=== PATIENT | male | born 1985 | race Caucasian/White ===

== ENCOUNTER 2025-03-20 12:39 | Emergency (ER) | payer MEDICAID, SELFPAY ==
[2025-03-20 12:47] VITALS: BP 152/113; PULSE 71; RESP 18; TEMP 36.6; O2SAT 99
--- NOTE | 2025-03-20 12:52 | ED_ITS ---
HPI - Nausea/Vomiting/Diarrhea General Chief complaint: Nausea/Vomiting/Diarrhea Stated complaint: wants to detox Time Seen by Provider: 03/20/25 12:45 Source: patient and family Mode of arrival: ambulatory Limitations: no limitations History of Present Illness HPI Narrative: Patient is a 40-year-old male who came to the ER for discussion of alcohol detoxification. He has not had an alcoholic beverage in about 18 hours. He is not having current withdrawal symptoms. He is having some nausea. MD elicited complaint: nausea Pertinent past history: alcohol abuse ( more than 15 years and no trial of detox except 15 years ago) Onset (ago): day(s) ( 1) Description of vomiting: none Description of diarrhea: other ( none) Associated nausea: Yes Associated abdominal pain: No Location of pain: none Radiation: does not radiate Pain consistency: other ( none) Severity: mild Pain scale (0-10): 1 Quality: other ( none) Exacerbating factors: other ( patient stopped alcohol yesterday) Relieving factors: none Context: alcohol abuse Associated symptoms: denies other symptoms Treatment prior to arrival: none Related Data Home Medications ?Medication ?Instructions ?Recorded ?Confirmed ?Last Taken ?Type No Home Medications 03/20/25 03/20/25 Unknown History Allergies Allergy/AdvReac Type Severity Reaction Status Date / Time red (food color) Allergy Hives Verified 03/20/25 12:51 Review of Systems Review of Systems: All systems reviewed & are unremarkable except as noted in HPI and below Constitutional: Constitutional: Reports no additional constitutional complaints Eyes: Eyes: Reports no additional eye complaints ENT: Reports system reviewed and no additional complaints, except as documented Cardiovascular: Cardiovascular: Reports no additional cardiovascular complaints Respiratory: Respiratory: Reports no additional respiratory complaints Gastrointestinal: Gastrointestinal: Reports no additional gastrointestinal complaints Genitourinary: Genitourinary: Reports no additional male genitourinary complaints Musculoskeletal: Musculoskeletal: Reports no additional musculoskeletal complaints Integumentary/Breasts: Skin/Breast: Reports system reviewed and no additional complaints, except as docu Neurologic: Reports system reviewed and no additional complaints, except as documented Psychiatric: Psychiatric: Reports no additional psychiatric complaints Endocrine: Endocrine: Reports no additional endocrine complaints Hematologic/Lymphatic: Hematologic/Lymphatic: Reports no additional hematologic/lymphatic complaints Allergic/Immunologic: Allergic/Immunologic: Reports no additional allergic/immunologic complaints Exam Const: General: healthy appearing Nutritional Appearance: well nourished Orientation/consciousness: patient oriented x3 HENMT: Head: normal to inspection Ears: external ears normal Face/Nose/Sinus: Normal external nose present Eyes: Conjunctivae: conjunctivae normal Cornea: corneas normal Pupils: Equal, round and reactive pupils present Neck: Neck: normal visual inspection Chest: Chest palpation & inspection: normal inspection of the chest Resp: Effort & Inspection: normal respiratory effort and not labored Auscultation: clear to auscultation bilaterally and no crackles Cardio: Rate: regular rate Rhythm: regular rhythm Heart sounds: no murmurs GI: Inspection: non-distended GI Palp: Yes Soft to palpation and No Ten derness to palpation present (GI) Auscultation: normal bowel sounds : General: Yes bladder normal to palpation Back/Spine/Pelvis: Back: no CVA tenderness Skin: General skin exam: normal color Rashes: no rashes Wounds: no wounds Neuro: General: patient oriented x3, moves all extremities and no meningeal signs Cranial nerves: Yes Nystagmus not present Speech: normal speech Gait exam (Neuro): Normal gait present Other: GCS is 15 Extrem: General: normal to inspection Psych: Mental Status: mental status grossly normal Affect: normal affect Attitude: cooperative Course Vital Signs Vital signs: Vital Signs Temperature 36.6 C 03/20/25 12:47 Pulse Rate 71 03/20/25 12:47 Respiratory Rate 18 03/20/25 12:47 Blood Pressure 152/113 H 03/20/25 12:47 Pulse Oximetry 99 03/20/25 12:47 Oxygen Delivery Room Air 03/20/25 12:47 Temperature 36.6 C 03/20/25 12:47 Pulse Rate 71 03/20/25 12:47 Respiratory Rate 18 03/20/25 12:47 Blood Pressure 152/113 H 03/20/25 12:47 Pulse Oximetry 99 03/20/25 12:47 Oxygen Delivery Room Air 03/20/25 12:47 MDM - Nausea/Vomiting/Diarrhea MDM Narrative Medical decision making narrative: patient is a 40-year-old male with desire for alcohol detoxification and some nausea. We discussed options of doing IV fluids and nausea medicine and see how he does but he is not in withdrawal at this time and does not meet criteria exactly for admission at this time. Further, he may go to the detox inpatient at [facility] but he would have to go on his own to the front door and jitendra ck in to the hospital. Patient chose to go to the hospital for detox on his own. Discharge Plan Discharge Clinical Impression: Alcoholism Patient Disposition: Home Condition: Stable Instructions: Abuse of Alcohol (ED) Additional Instructions: please proceed to the detox program at the given [facility] at this time. Patient Language: Frisian Prescriptions: No Action No Home Medications Follow-up/Referrals: UNKNOWN,DOCTOR [Non-Staff] - Time of Disposition: 13:21
--- OUTSIDE RECORDS SUMMARY | 2025-03-20 14:34 | XMS_ITS | Continuity of Care Document ---
Author Organization [facility] Address [address] [place] [address] [place] [address] Phone Care Team Providers Care Commissioned Sales Associate Name Role Phone Reynold Oneil MD Unavailable Unavailable Allergies, Adverse Reactions, Alerts Substance Reaction Status Criticality red dye Active No Information Medications Medication Instructions Dosage Effective Dates (start - stop) Status Comments Ultram 50 mg tablet take 1 tablet (50MG) by oral route every 6 hours as needed - Active PRN for pain, avoid driving or operate machines Paxil 20 mg tablet take 1 tablet (20MG) by oral route every day 20 MG - Active buspirone 7.5 mg tablet take 1 tablet (7.5MG) by oral route 2 times every day 7.5 MG - Active avoid driving or operate machines Procedures Procedure Date PREV VISIT, NEW, AGE 18-39 Advance Directives Directive Yes / No Effective Date File Name No Information Encounters Encounter Description Practice Location Reason(s) For Visit Diagnoses Date Provider Providers Copied on Encounter [facility], [address] [place], [place], [id number], tel:[phone] [facility] No Information Thad Flaherty. [address] [facility] [place], [id number], [place]. tel:[phone] PREV VISIT, NEW, AGE 18-39 [facility], [address] [place] [place], [place], [id number], [place] tel:[phone] [facility] Medicine Physical (chief complaint) Routine Medical ExamRoutine Medical Exam Thad Flaherty. [address], [place], [place], [id number], [place]. tel:[phone] Family History Family Member Type Diagnosis Age At Onset Mother Problem (finding) Anxiety Father Problem (finding) Alive and well Mother Problem (finding) MS Brother Problem (finding) Anxiety Father Problem (finding) No Family hist ory of No history of Coronary artery disease Payers Payer name Insurance type Covered republican ID Authoriza tion(s) No Information Social History Type Description Quantity Date Captured Comments Sex Male Smoking Status No Information Chief Complaint And Reason For Visit No Information Plan Of Treatment Date Type Action Status Goal Tobacco cessation counseling completed Referral Ordered: Plastic Surg ordered Referral Ordered: CHEST X-RAY PA/LAT TWO-VIEWS ordered Referral Ordered: Referral: Plastic Surg. ordered History Of Present Illness Encounter Date Complaint History Of Prese nt Illness No Information Instructions Date Instruction Additional Infor anastasiia Quit smoking. Related to Pino wright Medical Exam Assessments Type Assessment Date No Information
== END 2025-03-20 13:42 | disposition home or self-care (01) ==
LOC: CHSED 13:28
PROVIDERS: Emergency Provider Emergency Medicine; Referring Provider Family Medicine
DX: F10.20 Alcohol dependence, uncomplicated (principal); Y90.9 Presence of alcohol in blood, level not specified
CPT/HCPCS: 99281